=== PATIENT | female | born 1985 | race Hispanic/Latino ===

== ENCOUNTER 2019-07-18 18:56 | Emergency (ER) | payer MEDICAID | END 2019-07-18 19:21 | disposition home or self-care (01) | LOC: EDH 18:56 | DX: M54.5 Low back pain (principal); F41.9 Anxiety disorder, unspecified; V43.52XA Car driver injured in collision with other type car in traffic accident, initial encounter; Y93.89 Activity, other specified; Y92.89 Other specified places as the place of occurrence of the external cause; Y99.8 Other external cause status ==

== ENCOUNTER 2019-09-06 09:29 | Emergency (ER) | payer MEDICAID | END 2019-09-06 09:56 | disposition home or self-care (01) | LOC: EDH 09:29 | DX: J06.9 Acute upper respiratory infection, unspecified (principal); Z98.890 Other specified postprocedural states ==